=== PATIENT | female | born 1960 | race Caucasian/White ===

== ENCOUNTER 2022-02-05 21:14 | Inpatient (IN) | payer MEDICARE ==
[2022-02-05] MEDS ORDERED: methylPREDNISolone Sod Succ/PF 125 MG/2 ML VIAL ONE (21:54)
[2022-02-05] MEDS ORDERED: Magnesium 2 GM/50 ML BAG (IN WATER) ONE (21:54)
[2022-02-05 22:05] LABS: #Basophils 0.1 thou/uL (0.0-0.2); #Eosinphils 0.2 thou/uL (0.0-0.7); #Lymphocytes 2.2 thou/uL (1.20-3.40); #Monocytes 0.5 thou/uL (0.11-0.59); #Neutrophils 3.3 thou/uL (1.40-6.50); %Basophils 1.5 % (0.0-1.0); %Eosinophils 2.5 % (0.0-10.0); %Lymphocytes 35.7 % (21.0-51.0); %Monocytes 7.7 % (0.0-10.0); %Neutrophils 52.6 % (42.0-75.0); Hemoglobin 15.1 g/dL (12.0-16.0); Mean Corpuscular HGB CONC 34.4 g/dL (32.0-36.0); Mean Corpuscular Hemoglobin 33.5 pg (27.0-31.0); Mean Corpuscular Volume 97.4 fl (78.0-98.0); Mean Platelet Volume 8.6 fL (7.4-10.4); Platelet Count 144 10x3/uL (130-400); RBC Distribution Width 12.2 % (11.5-14.5); White Blood Cell (WBC) Count 6.2 10x3/uL (4.8-10.8)
[2022-02-05 22:08] LABS: INR-International Normal Ratio 0.8; Prothrombin Time 11.3 sec (12.0-14.7)
[2022-02-05 22:09] LABS: PTT 28.4 sec (22.9-36.1)
[2022-02-05 23:24] LABS: Albumin 3.2 g/dL (3.5-5.0)
[2022-02-05 23:25] LABS: Chloride 97 mmol/L (98-107); Potassium 4.1 mmol/L (3.5-5.1); Sodium 142 mmol/L (136-145)
[2022-02-05 23:26] LABS: Calcium 9.1 mg/dL (7.8-10.44)
[2022-02-05 23:27] LABS: Globulin 3.1 g/dL (2.4-3.5); Glucose 148 mg/dL (70-105); Protein, Total 6.3 g/dL (6.0-8.3)
[2022-02-05 23:28] LABS: Anion Gap 17 mmol/L (10-20); Bilirubin, Total 0.2 mg/dL (0.2-1.2); Carbon Dioxide 32 mmol/L (22-29)
[2022-02-05 23:30] LABS: Alkaline Phosphatase 100 U/L (40-110); Calc. Creatinine Clearance 0 mL/min (70-130); Estimated GFR 103
[2022-02-05 23:31] LABS: BUN (Urea Nitrogen) 10 mg/dL (9.8-20.1)
[2022-02-05 23:32] LABS: ALT (SGPT) 26 U/L (8-55); AST (SGOT) 17 U/L (5-34)
[2022-02-06 00:17] LABS: Bilirubin Negative (Negative); Blood, Urine Negative (Negative); Clarity Clear (Clear); Glucose, Urine (Dipstick) Normal (Negative); Ketone, Urine Negative (Negative); Leukocyte Negative Leu/uL (Negative); Nitrite Negative (Negative); Protein, Urine (Dipstick) Negative (Neg-Trace); Specific Gravity, Urine 1.024 (1.002-1.036); Urobilinogen Normal mg/dL (Less than 2); pH, Urine 5.5 (5.0-9.0)
[2022-02-06 01:07] LABS: Lactic Acid 2.1 mmol/L (0.5-2.2)
[2022-02-06] MEDS ORDERED: Ondansetron ODT 4 MG TAB PO PRN (02:34)
[2022-02-06] MEDS ORDERED: Ondansetron PF 4 MG/2 ML Vial IVP PRN (02:34)
[2022-02-06] MEDS ORDERED: Furosemide 40 MG/4 ML VIAL SLOW IVP SCH (02:45)
[2022-02-06] MEDS ORDERED: Dextrose 5% in Water 1,000 ML IV PRN (03:07)
[2022-02-06] MEDS ORDERED: Dextrose 50% Abboject 50 ML SYRINGE SLOW IVP PRN (03:07)
[2022-02-06 04:13] VITALS: BMI 37.6
[2022-02-06] MEDS: cefTRIAXone\\ROCEPHIN 2 GM in Sodium Chloride 0.9% 100 ML IVPB SCH (04:40)
[2022-02-06] MEDS: methylPREDNISolone Sod Succ 40 MG VIAL IVP SCH ×3 (04:40→17:39)
[2022-02-06 05:01] LABS: SARS-CoV-2 NAA Rapid Test Not Detected (NotDetected)
[2022-02-06] MEDS: HumaLOG 300 UNITS/3 ML VIAL SC PRN ×2 (05:43→11:11)
[2022-02-06] MEDS ORDERED: methylPREDNISolone Sod Succ 40 MG VIAL IVP SCH (09:00)
[2022-02-06] MEDS: Cholecalciferol 1,000 UNITS (25 MCG) TAB PO SCH (09:07)
[2022-02-06] MEDS: FLUoxetine HCl 10 MG CAP PO SCH (09:07)
[2022-02-06] MEDS: Aspirin 81 mg Enteric Coated Tablet PO SCH (09:07)
[2022-02-06] MEDS: Doxycycline 100 MG in Sodium Chloride 0.9% 100 ML IVPB SCH ×2 (09:07→20:48)
[2022-02-06] MEDS: Simethicone Chewable 80 MG TAB PO SCH ×4 (09:07→20:47)
[2022-02-06] MEDS: Benzonatate 100 MG CAP PO PRN (09:07)
[2022-02-06] MEDS: metFORMIN 500 MG TAB PO SCH (16:52)
[2022-02-06] MEDS: Furosemide 40 MG TAB PO SCH (20:47)
[2022-02-07] MEDS: methylPREDNISolone Sod Succ 40 MG VIAL IVP SCH ×4 (00:24→17:41)
[2022-02-07] MEDS: HYDROcodone/Acetaminophen 5/325 mg Tablet PO PRN (01:11)
[2022-02-07] MEDS: cefTRIAXone\\ROCEPHIN 2 GM in Sodium Chloride 0.9% 100 ML IVPB SCH (04:08)
[2022-02-07] MEDS: HumaLOG 300 UNITS/3 ML VIAL SC PRN ×3 (04:27→20:33)
[2022-02-07 06:26] LABS: #Lymphocytes 0.6 thou/uL (1.20-3.40); #Monocytes 0.2 thou/uL (0.11-0.59); #Neutrophils 8.5 thou/uL (1.40-6.50); %Basophils 0.2 % (0.0-1.0); %Eosinophils 0.1 % (0.0-10.0); %Lymphocytes 6.3 % (21.0-51.0); %Neutrophils 91.4 % (42.0-75.0); Hemoglobin 15.3 g/dL (12.0-16.0); Mean Corpuscular HGB CONC 32.9 g/dL (32.0-36.0); Mean Corpuscular Hemoglobin 33.2 pg (27.0-31.0); Mean Platelet Volume 8.3 fL (7.4-10.4); Platelet Count 147 10x3/uL (130-400); RBC Distribution Width 12.2 % (11.5-14.5); Red Blood Cell (RBC) Count 4.59 mill/uL (4.20-5.40); White Blood Cell (WBC) Count 9.3 10x3/uL (4.8-10.8)
[2022-02-07 08:08] LABS: Anion Gap 17 mmol/L (10-20); BUN (Urea Nitrogen) 13 mg/dL (9.8-20.1); Calc. Creatinine Clearance 142 mL/min (70-130); Carbon Dioxide 34 mmol/L (22-29); Chloride 90 mmol/L (98-107); Estimated GFR 100; Glucose 225 mg/dL (70-105); Potassium 3.7 mmol/L (3.5-5.1); Sodium 137 mmol/L (136-145)
[2022-02-07] MEDS: Aspirin 81 mg Enteric Coated Tablet PO SCH (08:11)
[2022-02-07] MEDS: Cholecalciferol 1,000 UNITS (25 MCG) TAB PO SCH (08:11)
[2022-02-07] MEDS: Simethicone Chewable 80 MG TAB PO SCH ×4 (08:11→20:23)
[2022-02-07] MEDS: Doxycycline 100 MG in Sodium Chloride 0.9% 100 ML IVPB SCH ×2 (08:11→20:23)
[2022-02-07] MEDS: FLUoxetine HCl 10 MG CAP PO SCH (08:12)
[2022-02-07] MEDS: Furosemide 40 MG TAB PO SCH ×2 (08:12→20:24)
[2022-02-07] MEDS: metFORMIN 500 MG TAB PO SCH ×2 (08:12→16:50)
[2022-02-08] MEDS: methylPREDNISolone Sod Succ 40 MG VIAL IVP SCH ×4 (00:06→20:28)
[2022-02-08] MEDS: cefTRIAXone\\ROCEPHIN 2 GM in Sodium Chloride 0.9% 100 ML IVPB SCH (03:45)
[2022-02-08] MEDS: GUAIFENESIN SF SOLN 200 MG/10 ML UDCUP PO PRN ×2 (03:58→20:38)
[2022-02-08] MEDS: HYDROcodone/Acetaminophen 5/325 mg Tablet PO PRN ×2 (03:58→17:09)
[2022-02-08] MEDS: HumaLOG 300 UNITS/3 ML VIAL SC PRN ×4 (05:57→20:50)
[2022-02-08] MEDS: Furosemide 40 MG TAB PO SCH ×2 (08:46→20:29)
[2022-02-08] MEDS: Aspirin 81 mg Enteric Coated Tablet PO SCH (08:46)
[2022-02-08] MEDS: metFORMIN 500 MG TAB PO SCH ×2 (08:46→17:09)
[2022-02-08] MEDS: Cholecalciferol 1,000 UNITS (25 MCG) TAB PO SCH (08:46)
[2022-02-08] MEDS: Simethicone Chewable 80 MG TAB PO SCH ×4 (08:46→20:28)
[2022-02-08] MEDS: FLUoxetine HCl 10 MG CAP PO SCH (08:46)
[2022-02-08] MEDS: Doxycycline 100 MG in Sodium Chloride 0.9% 100 ML IVPB SCH ×2 (08:47→20:54)
[2022-02-08] MEDS: guaiFENesin ER 600 MG TAB PO PRN (10:00)
[2022-02-08] MEDS ORDERED: methylPREDNISolone Sod Succ 40 MG VIAL IVP SCH (14:00)
[2022-02-08 17:00] LABS: #Lymphocytes 0.6 thou/uL (1.20-3.40); #Monocytes 0.5 thou/uL (0.11-0.59); #Neutrophils 9.7 thou/uL (1.40-6.50); %Basophils 0.1 % (0.0-1.0); %Eosinophils 0.2 % (0.0-10.0); %Lymphocytes 5.4 % (21.0-51.0); %Monocytes 4.2 % (0.0-10.0); %Neutrophils 90.1 % (42.0-75.0); Hemoglobin 14.9 g/dL (12.0-16.0); Mean Corpuscular HGB CONC 32.5 g/dL (32.0-36.0); Mean Corpuscular Hemoglobin 32.7 pg (27.0-31.0); Mean Platelet Volume 8.3 fL (7.4-10.4); Platelet Count 147 10x3/uL (130-400); RBC Distribution Width 12.2 % (11.5-14.5); Red Blood Cell (RBC) Count 4.54 mill/uL (4.20-5.40); White Blood Cell (WBC) Count 10.7 10x3/uL (4.8-10.8)
[2022-02-08 17:21] LABS: Anion Gap 14 mmol/L (10-20); BUN (Urea Nitrogen) 21 mg/dL (9.8-20.1); Calc. Creatinine Clearance 118 mL/min (70-130); Calcium 9.5 mg/dL (7.8-10.44); Carbon Dioxide 37 mmol/L (22-29); Chloride 92 mmol/L (98-107); Estimated GFR 84; Glucose 201 mg/dL (70-105); Potassium 4.1 mmol/L (3.5-5.1); Sodium 139 mmol/L (136-145)
[2022-02-08 17:26] LABS: Troponin I Less than 0.010 ng/mL (< 0.028)
[2022-02-08] MEDS: Benzonatate 100 MG CAP PO PRN (20:29)
[2022-02-09] MEDS: methylPREDNISolone Sod Succ 40 MG VIAL IVP SCH ×3 (03:23→20:29)
[2022-02-09] MEDS: cefTRIAXone\\ROCEPHIN 2 GM in Sodium Chloride 0.9% 100 ML IVPB SCH (03:24)
[2022-02-09] MEDS: guaiFENesin ER 600 MG TAB PO PRN (03:39)
[2022-02-09] MEDS: Simethicone Chewable 80 MG TAB PO SCH ×4 (05:59→20:29)
[2022-02-09] MEDS: Acetaminophen 325 MG TAB PO PRN ×2 (06:01→20:33)
[2022-02-09] MEDS: HumaLOG 300 UNITS/3 ML VIAL SC PRN ×3 (06:08→17:33)
[2022-02-09] MEDS: Cholecalciferol 1,000 UNITS (25 MCG) TAB PO SCH (08:58)
[2022-02-09] MEDS: Furosemide 40 MG TAB PO SCH ×2 (08:58→20:32)
[2022-02-09] MEDS: Doxycycline 100 MG in Sodium Chloride 0.9% 100 ML IVPB SCH (08:58)
[2022-02-09] MEDS: Aspirin 81 mg Enteric Coated Tablet PO SCH (08:58)
[2022-02-09] MEDS: metFORMIN 500 MG TAB PO SCH ×2 (08:58→17:33)
[2022-02-09] MEDS: FLUoxetine HCl 10 MG CAP PO SCH (08:58)
[2022-02-09] MEDS ORDERED: FLU VACC QS2022-23(6MOS UP)/PF 60 MCG/0.5 ML SYRINGE IM ONE (09:00)
[2022-02-10] MEDS: HumaLOG 300 UNITS/3 ML VIAL SC PRN ×2 (05:25→20:26)
[2022-02-10] MEDS: metFORMIN 500 MG TAB PO SCH ×2 (09:01→16:42)
[2022-02-10] MEDS: FLUoxetine HCl 10 MG CAP PO SCH (09:01)
[2022-02-10] MEDS: Cholecalciferol 1,000 UNITS (25 MCG) TAB PO SCH (09:01)
[2022-02-10] MEDS: Aspirin 81 mg Enteric Coated Tablet PO SCH (09:02)
[2022-02-10] MEDS: Simethicone Chewable 80 MG TAB PO SCH ×4 (09:02→20:23)
[2022-02-10] MEDS: Furosemide 40 MG TAB PO SCH ×2 (09:02→20:23)
[2022-02-10] MEDS: methylPREDNISolone Sod Succ 40 MG VIAL IVP SCH ×2 (09:05→20:25)
[2022-02-10] MEDS: Acetaminophen 325 MG TAB PO PRN (20:24)
[2022-02-11] MEDS: HumaLOG 300 UNITS/3 ML VIAL SC PRN ×2 (05:28→20:49)
[2022-02-11 07:26] LABS: #Monocytes 0.9 thou/uL (0.11-0.59); #Neutrophils 8.2 thou/uL (1.40-6.50); %Eosinophils 0.4 % (0.0-10.0); %Lymphocytes 9.6 % (21.0-51.0); Hemoglobin 15.9 g/dL (12.0-16.0); Mean Corpuscular HGB CONC 31.8 g/dL (32.0-36.0); Mean Corpuscular Hemoglobin 31.9 pg (27.0-31.0); Mean Platelet Volume 8.4 fL (7.4-10.4); Platelet Count 150 10x3/uL (130-400); RBC Distribution Width 12.3 % (11.5-14.5); Red Blood Cell (RBC) Count 4.98 mill/uL (4.20-5.40); White Blood Cell (WBC) Count 10.2 10x3/uL (4.8-10.8)
[2022-02-11 07:49] LABS: BUN (Urea Nitrogen) 20 mg/dL (9.8-20.1); Calc. Creatinine Clearance 142 mL/min (70-130); Calcium 9.8 mg/dL (7.8-10.44); Estimated GFR 100; Glucose 130 mg/dL (70-105)
[2022-02-11 07:58] LABS: Anion Gap 17 mmol/L (10-20); Carbon Dioxide 37 mmol/L (22-29); Chloride 89 mmol/L (98-107); Potassium 4.3 mmol/L (3.5-5.1); Sodium 139 mmol/L (136-145)
[2022-02-11] MEDS: Aspirin 81 mg Enteric Coated Tablet PO SCH (08:48)
[2022-02-11] MEDS: metFORMIN 500 MG TAB PO SCH ×2 (08:48→17:20)
[2022-02-11] MEDS: Cholecalciferol 1,000 UNITS (25 MCG) TAB PO SCH (08:48)
[2022-02-11] MEDS: FLUoxetine HCl 10 MG CAP PO SCH (08:48)
[2022-02-11] MEDS: Simethicone Chewable 80 MG TAB PO SCH ×4 (08:49→20:48)
[2022-02-11] MEDS: methylPREDNISolone Sod Succ 40 MG VIAL IVP SCH (08:49)
[2022-02-11] MEDS: Furosemide 40 MG TAB PO SCH ×2 (08:49→20:47)
[2022-02-11] MEDS: predniSONE 20 MG TAB PO SCH (17:20)
[2022-02-11] MEDS ORDERED: Melatonin 3 MG TAB PO PRN (23:15)
[2022-02-11] MEDS: Acetaminophen 325 MG TAB PO PRN (23:27)
[2022-02-12] MEDS: HumaLOG 300 UNITS/3 ML VIAL SC PRN (06:11)
[2022-02-12 08:42] VITALS: BP 110/76; TEMP 98.4
[2022-02-12] MEDS: Cholecalciferol 1,000 UNITS (25 MCG) TAB PO SCH (08:48)
[2022-02-12] MEDS: metFORMIN 500 MG TAB PO SCH (08:48)
[2022-02-12] MEDS: FLUoxetine HCl 10 MG CAP PO SCH (08:49)
[2022-02-12] MEDS: Aspirin 81 mg Enteric Coated Tablet PO SCH (08:49)
[2022-02-12] MEDS: Furosemide 40 MG TAB PO SCH (08:49)
[2022-02-12] MEDS: predniSONE 20 MG TAB PO SCH (08:49)
[2022-02-12] MEDS: Simethicone Chewable 80 MG TAB PO SCH ×2 (08:49→14:19)
== END 2022-02-12 16:00 | disposition home or self-care (01) | DRG 189 ==
LOC: ERS 21:14 → 2NO 02-06 01:55 → EDBD 02-06 01:55 → T4-B 02-06 12:25
PROVIDERS: ADMIT Internal Medicine; ATTEND Internal Medicine
DX: J96.21 Acute and chronic respiratory failure with hypoxia (principal); J44.1 Chronic obstructive pulmonary disease with (acute) exacerbation; Z20.822 Contact with and (suspected) exposure to COVID-19; I27.20 Pulmonary hypertension, unspecified; F17.210 Nicotine dependence, cigarettes, uncomplicated; E11.9 Type 2 diabetes mellitus without complications; J40 Bronchitis, not specified as acute or chronic; Z71.6 Tobacco abuse counseling; Z85.038 Personal history of other malignant neoplasm of large intestine; Z99.81 Dependence on supplemental oxygen; Z79.899 Other long term (current) drug therapy; Z79.82 Long term (current) use of aspirin; Z79.84 Long term (current) use of oral hypoglycemic drugs; Z90.89 Acquired absence of other organs; Z82.3 Family history of stroke; Z80.8 Family history of malignant neoplasm of other organs or systems; Z82.49 Family history of ischemic heart disease and other diseases of the circulatory system
CPT/HCPCS: 36415; 36416; 71045; 80048; 80053; 81003; 83605; 83735; 83880; 84484; 85025; 85610; 85730; 87040; 93005; 93010; 96365; 96375; J0696; J1815; J1940; J2920; J2930; J3475; J3490; J7512; J7620

== ENCOUNTER 2022-03-29 13:21 | Outpatient (CLI) | payer MEDICARE | END 2022-03-29 13:22 | disposition home or self-care (01) | LOC: BICULT 13:21 | PROVIDERS: ATTEND Nurse Practitioner Family | DX: R60.0 Localized edema (principal) ==

== ENCOUNTER 2022-04-05 13:06 | Outpatient (CLI) | payer MEDICARE | END 2022-04-05 13:07 | disposition home or self-care (01) | LOC: BICULT 13:06 | PROVIDERS: ATTEND Nurse Practitioner Family | DX: R60.0 Localized edema (principal) ==

== ENCOUNTER 2022-07-05 12:58 | Outpatient (CLI) | payer MEDICARE | END 2022-07-05 12:59 | disposition home or self-care (01) | LOC: BICRAD 12:58 | PROVIDERS: ATTEND Nurse Practitioner Family | DX: J44.1 Chronic obstructive pulmonary disease with (acute) exacerbation (principal) | CPT/HCPCS: 71046 ==

== ENCOUNTER 2022-07-10 10:44 | Emergency (ER) | payer MEDICARE ==
[2022-07-10] MEDS ORDERED: Ipratropium/Albuterol 3 ML NEB ONE ×2 (11:00→15:07)
[2022-07-10 11:24] LABS: #Lymphocytes 0.8 thou/uL (1.20-3.40); #Monocytes 0.1 thou/uL (0.11-0.59); #Neutrophils 10.1 thou/uL (1.40-6.50); %Basophils 0.2 % (0.0-1.0); %Eosinophils 0.3 % (0.0-10.0); %Lymphocytes 7.5 % (21.0-51.0); %Monocytes 1.3 % (0.0-10.0); %Neutrophils 90.7 % (42.0-75.0); Mean Corpuscular Hemoglobin 32.7 pg (27.0-31.0); Mean Platelet Volume 9.1 fL (7.4-10.4); Platelet Count 158 10x3/uL (130-400); Red Blood Cell (RBC) Count 4.89 mill/uL (4.20-5.40); White Blood Cell (WBC) Count 11.1 10x3/uL (4.8-10.8)
[2022-07-10 11:37] LABS: ALT (SGPT) 34 U/L (8-55); AST (SGOT) 25 U/L (5-34); Albumin 4.1 g/dL (3.4-4.8); Alkaline Phosphatase 117 U/L (40-110); Anion Gap 16 mmol/L (10-20); BUN (Urea Nitrogen) 18 mg/dL (9.8-20.1); Bilirubin, Total 0.2 mg/dL (0.2-1.2); Calc. Creatinine Clearance 0 mL/min (70-130); Calcium 10.3 mg/dL (7.8-10.44); Carbon Dioxide 35 mmol/L (23-31); Chloride 93 mmol/L (98-107); Estimated GFR 89; Globulin 3.4 g/dL (2.4-3.5); Glucose 250 mg/dL (80-115); Potassium 4.4 mmol/L (3.5-5.1); Protein, Total 7.5 g/dL (5.8-8.1); Sodium 140 mmol/L (136-145)
[2022-07-10] MEDS ORDERED: cefTRIAXone (ROCEPHIN) 2 GM VIAL ONE (11:49)
[2022-07-10] MEDS ORDERED: Aspirin Chewable 81 MG TAB ONE (12:14)
[2022-07-10] MEDS ORDERED: Azithromycin 500 MG VIAL ONE (12:15)
[2022-07-10 13:05] LABS: INR-International Normal Ratio 0.8; Prothrombin Time 11.9 sec (12.0-14.7)
[2022-07-10 13:06] LABS: PTT 25.7 sec (22.9-36.1)
[2022-07-10 13:07] LABS: D-Dimer Test 0.69 *mcg/mL (0.27-0.43)
[2022-07-10] MEDS ORDERED: methylPREDNISolone Sod Succ/PF 125 MG/2 ML VIAL ONE (14:17)
[2022-07-10 14:26] LABS: Lactic Acid 1.3 mmol/L (0.5-2.2)
[2022-07-10 14:58] LABS: Bilirubin Negative (Negative); Blood, Urine Negative (Negative); Clarity Clear (Clear); Glucose, Urine (Dipstick) Normal (Negative); Ketone, Urine Negative (Negative); Leukocyte Negative Leu/uL (Negative); Nitrite Negative (Negative); Protein, Urine (Dipstick) Negative (Neg-Trace); Specific Gravity, Urine 1.018 (1.002-1.036); Urobilinogen Normal mg/dL (Less than 2); pH, Urine 6.5 (5.0-9.0)
[2022-07-10 15:29] LABS: SARS-CoV-2 NAA Rapid Test Not Detected (NotDetected)
== END 2022-07-10 16:59 | disposition home or self-care (01) ==
LOC: ERS 10:44
DX: J44.1 Chronic obstructive pulmonary disease with (acute) exacerbation (principal); J18.9 Pneumonia, unspecified organism; J45.909 Unspecified asthma, uncomplicated; F17.210 Nicotine dependence, cigarettes, uncomplicated; Z79.82 Long term (current) use of aspirin; Z79.84 Long term (current) use of oral hypoglycemic drugs; Z79.899 Other long term (current) drug therapy; Z20.822 Contact with and (suspected) exposure to COVID-19
CPT/HCPCS: 0240U; 71045; 71275; 80053; 81003; 83605; 83880; 84484 ×2; 85025; 85379; 85610; 85730; 87040; 87086; 93005; J0456; 36415; 96361; 96365; 96366; 96368; 96375; J0696; J2930; J7620

== ENCOUNTER 2022-07-31 09:58 | Outpatient (CLI) | payer MEDICARE | END 2022-07-31 09:59 | disposition home or self-care (01) | LOC: RAD 09:58 | PROVIDERS: ATTEND Internal Medicine Critical Care Medicine | DX: R06.00 Dyspnea, unspecified (principal) | CPT/HCPCS: 71046 ==

== ENCOUNTER 2023-06-01 | Inpatient (IN) | payer MEDICARE | END 2023-06-11 14:57 | disposition home or self-care (01) | DRG 189 | PROVIDERS: ADMIT Internal Medicine | PROC: 5A09357 Assistance with Respiratory Ventilation, Less than 24 Consecutive Hours, Continuous Positive Airway Pressure (ICD-10-PCS; principal; 2023-06-01) | DX: J96.21 Acute and chronic respiratory failure with hypoxia (principal); J44.1 Chronic obstructive pulmonary disease with (acute) exacerbation; E87.3 Alkalosis; J96.22 Acute and chronic respiratory failure with hypercapnia; J45.909 Unspecified asthma, uncomplicated; E11.65 Type 2 diabetes mellitus with hyperglycemia; T38.0X5A Adverse effect of glucocorticoids and synthetic analogues, initial encounter; F17.210 Nicotine dependence, cigarettes, uncomplicated; Z51.5 Encounter for palliative care; Z99.81 Dependence on supplemental oxygen; Z85.038 Personal history of other malignant neoplasm of large intestine; Z79.82 Long term (current) use of aspirin; Z79.84 Long term (current) use of oral hypoglycemic drugs; Z79.51 Long term (current) use of inhaled steroids; Z71.6 Tobacco abuse counseling ==